=== PATIENT | male | born 1965 | race Caucasian/White ===

== ENCOUNTER 2017-06-27 08:21 | Emergency (ER) | payer MEDICAID ==
[2017-06-27 08:28] VITALS: TEMP 99; O2SAT 95
[2017-06-27] MEDS ORDERED: IPRATROPIUM/ALBUTEROL 3 ML DEYVIAL IH ONE (08:35)
[2017-06-27] MEDS ORDERED: IPRATROPIUM/ALBUTEROL 3 ML DEYVIAL ONE (08:39)
[2017-06-27] MEDS ORDERED: methylPREDNISolone SOD SUCC 125 MG/2 ML VIAL ONE (08:56)
[2017-06-27] MEDS ORDERED: ALBUTEROL 3 ML DEYVIAL IH ONE (08:58)
[2017-06-27] MEDS ORDERED: predniSONE 20 MG TAB PO ONE (08:58)
--- NOTE | 2017-06-27 09:02 | EDPHY ---
H & P Time Seen by Provider: 06/27/17 08:54 HPI/ROS: CHIEF COMPLAINT: Shortness of breath HISTORY OF PRESENT ILLNESS: Patient is a 52-year-old male with a history of asthma who presents to the emergency department with an asthma exacerbation. States that over the past few days he has had increasing shortness of breath. He has been using albuterol but his symptoms have worsened. He does not have a nebulizer at home. He denies fevers or chills. He has a mild persistent cough. He feels those asthma symptoms have gotten slightly worse over the past few weeks. He quit smoking marijuana 6 weeks ago. He does not use cigarettes. REVIEW OF SYSTEMS: My complete review of systems is negative except as mentioned in the HPI. Past Medical/Surgical History: Includes asthma Past surgical history: Noncontributory Social history: The patient does not smoke cigarettes Smoking Status: Former smoker Physical Exam: Vitals noted GENERAL: No acute distress, alert. HEENT: Eyes normal to inspection, normal pharynx, no signs of dehydration. NECK: No thyromegaly, no lymphadenopathy, supple. RESPIRATORY: No significant respiratory distress. Mild scattered wheezing. No accessory muscle use. CVS: Regular rate and rhythm, no rubs, murmurs, or gallops. ABDOMEN: Soft, nontender, nondistended, no organomegaly. BACK: Normal to inspection, no CVA tenderness. SKIN: Normal color, no rash, warm, dry. No pallor. EXTREMITIES: No pedal edema, no calf tenderness, no Homans sign or cords, no joint swelling. NEURO/PSYCH: Alert and oriented x3, normal mood and affect, normal motor sensory exam. Constitutional: Initial Vital Signs Temperature (C) 37.2 C 06/27/17 08:25 Heart Rate 90 06/27/17 08:25 Respiratory Rate 17 06/27/17 08:25 Blood Pressure 138/100 H 06/27/17 08:25 O2 Sat (%) 95 06/27/17 08:25 O2 Delivery Mode Room Air Allergies/Adverse Reactions: No Known Allergies Allergy (Unverified 06/27/17 08:24) Home Medications: Medication Instructions Recorded Advair Hfa 45-21 Mcg Inhaler 06/27/17 Albuterol 06/27/17 Albuterol Hfa Anes Only [Proair 2 puffs IH QID #1 mdi 06/27/17 Hfa Icu (*)] Fluticasone Hfa 110 Mcg [Flovent 1 puffs IH BID #1 mdi 06/27/17 110 MCG Hfa MDI (*)] predniSONE 20 mg PO DAILY 4 Days tab 06/27/17 Medical Decision Making ED Course/Re-evaluation: In the emergency department the patient received a DuoNeb from triage. He received the DuoNeb prior to my evaluating him. My physical exam is after the treatment. He stated he felt much better after the treatment. I discussed the plan with the patient. He was given a 2nd albuterol and prednisone 60 mg orally. I do not feel he needs an x-ray at this time. I discussed this with the patient. He agrees with the plan. The on recheck the patient was doing well. He had improved shortness of breath. Patient was given warnings prior to leaving. Pt was given albuterol and Flovent. Patient was also given prednisone. Patient will follow up with Yumi Morton. On recheck the patient is doing well. He has no shortness of breath. Breath sounds notable for minimal bilateral wheeze. He has good air movement. No accessory muscle use. Patient was given warnings prior to leaving. He will return with worsening symptoms. Differential Diagnosis: My differential includes but is not limited to asthma, pneumonia, bronchitis, mass, malignancy - Data Points Medications Given: Discontinued Medications Albuterol (Proventil Neb) 3 ml IH EDNOW ONE Stop: 06/27/17 08:59 Last Admin: 06/27/17 09:02 Dose: 3 ml Albuterol/Ipratropium (Duoneb) 3 ml IH EDNOW ONE Stop: 06/27/17 08:36 Last Admin: 06/27/17 08:38 Dose: 3 ml Prednisone (Prednisone) 60 mg PO ONCE ONE Stop: 06/27/17 08:59 Last Admin: 06/27/17 09:02 Dose: 60 mg Departure - Departure Disposition: Home, Routine, Self-Care Clinical Impression: Exacerbation of asthma Condition: Good Instructions: Asthma (ED) Additional Instructions: Return with increasing short of breath, fever, cough or any other concerns. Referrals: [facility] [Other] - 2-3 days, if not improved Prescriptions: Albuterol Hfa Anes Only [Proair Hfa Icu (*)] 2 puffs IH QID #1 mdi Fluticasone Hfa 110 Mcg [Flovent 110 MCG Hfa MDI (*)] 1 puffs IH BID #1 mdi
[2017-06-27 09:27] VITALS: BP 130/70; PULSE 84; RESP 14
== END 2017-06-27 10:06 | disposition home or self-care (01) ==
DX: J45.901 Unspecified asthma with (acute) exacerbation (principal); Z87.891 Personal history of nicotine dependence